=== PATIENT | female | born 1995 | race Caucasian/White ===

== ENCOUNTER 2016-08-14 11:49 | Emergency (ER) | payer MEDICAID ==
[2016-08-14 14:42] LABS: ALBUMIN 3.7 g/dL (3.4-5.0); ALKALINE PHOSPHATASE 99 U/L (46-116); ALT (SGPT) 41 U/L (10-68); AMYLASE - SERUM 30 U/L (25-115); BILIRUBIN - TOTAL 0.44 mg/dL (0.2-1.3); CALC OSMOLALITY 281 mosm/kg (275-300); CALCIUM 9.2 mg/dL (8.5-10.1); CARBON DIOXIDE 23.9 mmol/L (21.0-32.0); CHLORIDE - SERUM 106 mmol/L (98-107); CREATININE - SERUM 0.7 mg/dL (0.6-1.3); GLUCOSE 89 mg/dL (74-106); POTASSIUM - SERUM 3.9 mmol/L (3.5-5.1); PROTEIN - SERUM 7.5 g/dL (6.4-8.2); SODIUM 142 mmol/L (136-145); UREA NITROGEN 13 mg/dL (7-18); eGFR NON AFRICAN AMERICAN > 90 mL/min (90-120)
[2016-08-14 15:17] LABS: BASOPHILS 0.1 % (0-2); EOSINOPHILS 0.9 % (0-7); HEMATOCRIT 40.3 % (36.0-48.0); HEMOGLOBIN 13.5 g/dL (12-16); IMMATURE GRANULOCYTES 0.1 % (0-5); MCH 28.5 pg (26.0-34.0); MCHC 33.5 g/dL (31.0-37.0); MCV 85.2 fL (80.0-100.0); MEAN PLATELET VOLUME 10.4 fL (7.4-10.4); MONOCYTES 5.1 % (2-11); NEUTROPHILS 61.8 % (40-80); PLATELET COUNT 270 10x3/uL (130-400); RBC 4.73 10x6/uL (4.00-5.40); RDW 12.6 % (11.5-14.5); WBC 7.8 10x3/uL (4.8-10.8)
[2016-08-14 16:36] LABS: APPEARANCE HAZY (CLEAR); BILIRUBIN NEGATIVE (NEGATIVE); COLOR YELLOW (YELLOW); GLUCOSE NEGATIVE (NEGATIVE); KETONE NEGATIVE (NEGATIVE); LEUKOCYTE ESTERASE NEGATIVE (NEGATIVE); NITRITE NEGATIVE (NEGATIVE); PROTEIN NEGATIVE (NEGATIVE); UROBILINOGEN NORMAL (NORMAL)
[2016-08-14 16:37] LABS: BACTERIA FEW /hpf (NONE SEEN); EPITHELIAL CELLS 0-5 /hpf (0-5); RED CELLS - URINE 0-5 /hpf (0-5); WHITE CELLS - URINE NSEEN /hpf (0-5)
== END 2016-08-14 20:16 | disposition home or self-care (01) ==
LOC: D.ER 11:49
PROVIDERS: Nurse Practitioner Family
DX: R07.9 Chest pain, unspecified (principal); M94.0 Chondrocostal junction syndrome [Tietze]; R07.89 Other chest pain; M79.7 Fibromyalgia; E03.9 Hypothyroidism, unspecified; J45.909 Unspecified asthma, uncomplicated

== ENCOUNTER 2016-12-08 08:12 | Inpatient (IN) | payer MEDICAID ==
[~2016-12-08] VITALS: Ht 177.8 cm; Wt 124.3 kg
[2016-12-08 09:08] LABS: BASOPHILS 0.1 % (0-2); EOSINOPHILS 1.2 % (0-7); HEMATOCRIT 39.1 % (36.0-48.0); IMMATURE GRANULOCYTES 0.1 % (0-5); LYMPHOCYTES 21.2 % (15-50); MCH 28.3 pg (26.0-34.0); MCHC 33.2 g/dL (31.0-37.0); MCV 85.2 fL (80.0-100.0); MEAN PLATELET VOLUME 10.2 fL (7.4-10.4); MONOCYTES 5.5 % (2-11); NEUTROPHILS 71.9 % (40-80); RBC 4.59 10x6/uL (4.00-5.40); WBC 8.1 10x3/uL (4.8-10.8)
[2016-12-08 09:14] LABS: PLATELET COUNT 208 10x3/uL (130-400)
[2016-12-08 09:29] LABS: ALBUMIN 3.1 g/dL (3.4-5.0); ALKALINE PHOSPHATASE 103 U/L (46-116); ALT (SGPT) 62 U/L (10-68); AMYLASE - SERUM 168 U/L (25-115); BILIRUBIN - TOTAL 0.64 mg/dL (0.2-1.3); CALC OSMOLALITY 276 mosm/kg (275-300); CALCIUM 8.4 mg/dL (8.5-10.1); CARBON DIOXIDE 28.7 mmol/L (21.0-32.0); CHLORIDE - SERUM 104 mmol/L (98-107); CREATININE - SERUM 0.8 mg/dL (0.6-1.3); GLUCOSE 104 mg/dL (74-106); LIPASE 1307 U/L (73-393); POTASSIUM - SERUM 3.9 mmol/L (3.5-5.1); PROTEIN - SERUM 6.9 g/dL (6.4-8.2); SODIUM 139 mmol/L (136-145); UREA NITROGEN 10 mg/dL (7-18); eGFR NON AFRICAN AMERICAN > 90 mL/min (90-120)
[2016-12-08 10:11] LABS: APPEARANCE CLEAR (CLEAR); BILIRUBIN NEGATIVE (NEGATIVE); COLOR YELLOW (YELLOW); GLUCOSE NEGATIVE (NEGATIVE); KETONE NEGATIVE (NEGATIVE); LEUKOCYTE ESTERASE NEGATIVE (NEGATIVE); NITRITE NEGATIVE (NEGATIVE); PROTEIN NEGATIVE (NEGATIVE); UROBILINOGEN NORMAL (NORMAL)
[2016-12-08 10:12] LABS: HCG URINE NEGATIVE (NEGATIVE)
[2016-12-08] MEDS ORDERED: NATROL 5-HTP50 MG PO (17:06)
[2016-12-08] MEDS ORDERED: MELATONIN 3 MG1 TAB PO (17:06)
[2016-12-08] MEDS ORDERED: IBUPROFEN800 MG PO (17:07)
--- NOTE | 2016-12-08 18:19 | NUR ---
RECEIVED TO FLOOR, DENIES NEEDS, BED LOWEST POSITION, CALL LIGHT IN REACH, WILL CONTINUE TO MONITOR
[2016-12-08 18:22] LABS: HEMOGLOBIN A1C 5.6 % (4.8-6.0)
[2016-12-08 18:51] VITALS: BP 111/57; BMI 39.3
[2016-12-08 19:00] VITALS: BP 126/67
[2016-12-09] VITALS: BP 118/60
--- NOTE | 2016-12-09 02:00 | NUR ---
PT RESTING IN BED WITH NO DISTRESS. RESPIRATIONS EVEN AND UNLABORED. VISITOR AT THE BEDSIDE. SIDE RAILS X 2. BED IS LOW. CALL LIGHT IN REACH.
[2016-12-09 04:00] VITALS: BP 96/59
[2016-12-09 06:48] LABS: BASOPHILS 0.2 % (0-2); EOSINOPHILS 2.3 % (0-7); HEMATOCRIT 34.8 % (36.0-48.0); HEMOGLOBIN 11.9 g/dL (12-16); IMMATURE GRANULOCYTES 0.2 % (0-5); LYMPHOCYTES 32.1 % (15-50); MCH 28.7 pg (26.0-34.0); MCHC 34.2 g/dL (31.0-37.0); MCV 84.1 fL (80.0-100.0); MEAN PLATELET VOLUME 9.5 fL (7.4-10.4); MONOCYTES 6.4 % (2-11); NEUTROPHILS 58.8 % (40-80); PLATELET COUNT 205 10x3/uL (130-400); RBC 4.14 10x6/uL (4.00-5.40); RDW 13.1 % (11.5-14.5); WBC 6.5 10x3/uL (4.8-10.8)
[2016-12-09 07:05] LABS: ALBUMIN 2.7 g/dL (3.4-5.0); ALKALINE PHOSPHATASE 103 U/L (46-116); ALT (SGPT) 135 U/L (10-68); AMYLASE - SERUM 73 U/L (25-115); BILIRUBIN - TOTAL 0.77 mg/dL (0.2-1.3); CALC OSMOLALITY 278 mosm/kg (275-300); CALCIUM 7.9 mg/dL (8.5-10.1); CARBON DIOXIDE 26.4 mmol/L (21.0-32.0); CHLORIDE - SERUM 106 mmol/L (98-107); CREATININE - SERUM 0.7 mg/dL (0.6-1.3); GLUCOSE 98 mg/dL (74-106); LIPASE 316 U/L (73-393); POTASSIUM - SERUM 3.7 mmol/L (3.5-5.1); PROTEIN - SERUM 6.2 g/dL (6.4-8.2); SODIUM 141 mmol/L (136-145); UREA NITROGEN 7 mg/dL (7-18); eGFR NON AFRICAN AMERICAN > 90 mL/min (90-120)
--- NOTE | 2016-12-09 07:42 | NUR ---
AM ROUNDS - PT WALKING AROUND IN ROOM. NON SKID SOCKS ON. NO YELLOW BAND. SISTER AT BEDISDE. BED AT LOWEST POSITION. CALL KOVACS IN BED. SIDE RAILS UP X2. IV TO RIGHT FA, NS AT 125. NO NEEDS AT THIS TIME. WILL CONTINUE TO MONITOR.
[2016-12-09 09:03] VITALS: BP 101/56
--- NOTE | 2016-12-09 09:35 | NUR ---
Patient Name: ZEFERINO CARRERO Admission Status: ER Accout number: [id number] Admission Date: 12-08-2016 : 1995 Admission Diagnosis: Attending: JOSUÉ Current LOS: 1 Anticipated DC Date: 12-11-2016 Planned Disposition: Home Primary Insurance: [id number] Discharge Planning Comments: CM MET WITH PATIENT AND SISTER ([facility]) REGARDING D/C NEEDS AND PLANS. PATIENT LIVES WITH SISTER AND SHE WILL DRIVE HER HOME AT DISCHARGE. THERE ARE NO STEPS OR STAIRS AT HER HOME. PATIENT HAS HELP BATHING AND WITH MEDICATIONS PER SISTER. PATIENTS PCP IS AT [facility] AND SEES BENITA BELL. PATIENT USES [facility] [address] FOR HER PHARMACY NEEDS. PATIENT DOES GO TO [employer] AND IS ABOUT TO START PAIN MANAGEMENT PER SISTER. PATIENTS SISTER STATED PATIENT DOES NOT NEED HOME HEALTH. CM WILL CONTINUE TO FOLLOW PATIENT WITH D/C NEEDS AND PLANS. PCP [facility] (BENITA BELL) [facility] [address] [facility] [phone] Cops: Uma Mitchell Is the patient Alert and Oriented? Yes 0 * How many steps to enter\exit or inside your home? 0 0 * PCP [facility] 0 * Pharmacy [facility] [address] 0 * Preadmission Environment Home with Family 0 * ADLs Partial Dependent 0 * Partial ADLs (Assistance needed) Bathing Medication Management 0 * Equipment None 0 * List name and contact numbers for known caregivers / representatives who currently or will assist patient after discharge: [facility] [phone] 0 * Community resources currently utilized Other 0 * Please name any agencies selected above. [employer] 0 * Additional services required to return to the preadmission environment? Yes 0 * Can the patient safely return to the preadmission environment? Yes 0 * Has this patient been hospitalized within the prior 30 days at any hospital? No 0 Grand Total: 0
[2016-12-09 12:05] VITALS: BP 100/61
[2016-12-09 16:27] VITALS: BP 108/54
[2016-12-09 19:45] VITALS: BP 122/75
--- NOTE | 2016-12-09 19:45 | NUR ---
AWAKE DURING INITIAL ROUNDS. V/S TAKEN. ASSESSMENT DONE. STATUS Dx: PANCREATITIS/ABD PAIN. IVF--NS @ 75cc/hr TO R FA. IV SITE OK. DEMIES NEED FOR PAIN MED AT THIS TIME.
--- NOTE | 2016-12-09 21:10 | NUR ---
WATCHING TV. DENIES NEEDS AT THIS TIME. SISTER IN THE ROOM.
--- NOTE | 2016-12-09 22:30 | NUR ---
PATIENT's SISTER TO NURSES DESK--WANTS "SLEEPING PILL" FOR PT. CALL PLACED TO RAY GRAHAM. RETURNED CALL. ORDERED MELATONIN. NURSING CHIEF GROWTH OFFICER NOTIFIED.
--- NOTE | 2016-12-09 22:40 | NUR ---
MELATONIN 6mg PO GUVEN FOR SLEEP.
--- NOTE | 2016-12-10 00:30 | NUR ---
EYES CLOSED. LEFT UNDISTURBED.
--- NOTE | 2016-12-10 02:15 | NUR ---
APPEARS TO BE ASLEEP.
--- NOTE | 2016-12-10 04:36 | NUR ---
PORTABLE KUB DONE BY RADIOLOGY STAFF.
--- NOTE | 2016-12-10 04:58 | NUR ---
ASSISTANT DRAFTER HERE TO DRAW AM LAB
[2016-12-10 05:00] VITALS: BP 108/67
--- NOTE | 2016-12-10 05:11 | NUR ---
AMBULATING IN THE [place].
[2016-12-10 05:27] LABS: BASOPHILS 0 % (0-2); EOSINOPHILS 1.6 % (0-7); HEMATOCRIT 35.4 % (36.0-48.0); HEMOGLOBIN 12.1 g/dL (12-16); IMMATURE GRANULOCYTES 0.2 % (0-5); LYMPHOCYTES 34.3 % (15-50); MCH 28.9 pg (26.0-34.0); MCHC 34.2 g/dL (31.0-37.0); MCV 84.5 fL (80.0-100.0); MEAN PLATELET VOLUME 9.7 fL (7.4-10.4); MONOCYTES 6.3 % (2-11); NEUTROPHILS 57.6 % (40-80); PLATELET COUNT 204 10x3/uL (130-400); RBC 4.19 10x6/uL (4.00-5.40); WBC 5.7 10x3/uL (4.8-10.8)
[2016-12-10 05:59] LABS: ALBUMIN 2.9 g/dL (3.4-5.0); ALKALINE PHOSPHATASE 101 U/L (46-116); ALT (SGPT) 129 U/L (10-68); BILIRUBIN - TOTAL 0.67 mg/dL (0.2-1.3); CALC OSMOLALITY 276 mosm/kg (275-300); CALCIUM 8.1 mg/dL (8.5-10.1); CARBON DIOXIDE 25.7 mmol/L (21.0-32.0); CHLORIDE - SERUM 105 mmol/L (98-107); CREATININE - SERUM 0.6 mg/dL (0.6-1.3); GLUCOSE 90 mg/dL (74-106); LIPASE 233 U/L (73-393); POTASSIUM - SERUM 3.7 mmol/L (3.5-5.1); PROTEIN - SERUM 6.5 g/dL (6.4-8.2); SODIUM 140 mmol/L (136-145); UREA NITROGEN 7 mg/dL (7-18); eGFR NON AFRICAN AMERICAN > 90 mL/min (90-120)
[2016-12-10 06:03] LABS: AMYLASE - SERUM 46 U/L (25-115)
[2016-12-10 07:30] VITALS: BP 112/53
--- NOTE | 2016-12-10 07:30 | NUR ---
PT WAS RECEIVED THIS AM LYING IN MED. SHE OFFERS NO COMPLAINTS. GEN- AWAKE AND ALERT, LUNGS CLEAR. HEART- RRR. ABD- OBESE. NT, BS+, EXT NO EDEMA. IV PATENT R AC WITH NS. BED IS LOW, SIDE RAILS UP X 2. CALL LIGHT IN REACH.
--- NOTE | 2016-12-10 09:00 | NUR ---
PT IS LYING IN BED, PLAYING ON PHONE. SHE WANTS TO GO HOME.
--- NOTE | 2016-12-10 10:30 | NUR ---
PT IS RESTING. HAS BEEN UP TO BATHROOM AND THEN BACK TO BED.
[2016-12-10 10:54] VITALS: Ht 177.8 cm; Wt 124.3 kg
--- NOTE | 2016-12-10 12:00 | NUR ---
PT SERVED LUNCH. TOLERATED WELL.
--- NOTE | 2016-12-10 14:00 | NUR ---
DR DEL REAL IS HERE TO SEE PT.
--- NOTE | 2016-12-10 17:37 | NUR ---
PT IS BEING DISCHARGED HOME. DISCHARGE INSTRUCTIONS GIVEN. HANDOUTS GIVEN. HER SISTER IS WITH HER. PT TAKEN BY WHEELCHAIR TO HER VEHICLE. HER IV WAS D'CD TIP INTACT. PRESSURE DRESSING APPLIED.
== END 2016-12-10 18:08 | disposition home or self-care (01) | DRG 439 ==
LOC: D.ER 08:12 → D.MS 14:52 → D.SDCHOLD 14:52 → D.MS 17:02 → D.WS 12-09 16:49
PROVIDERS: Family Medicine; ADMIT Family Medicine
DX: K85.90 Acute pancreatitis without necrosis or infection, unspecified (principal); F84.0 Autistic disorder; R16.2 Hepatomegaly with splenomegaly, not elsewhere classified; K76.0 Fatty (change of) liver, not elsewhere classified; M79.7 Fibromyalgia; E28.2 Polycystic ovarian syndrome; F41.8 Other specified anxiety disorders; R32 Unspecified urinary incontinence; E03.9 Hypothyroidism, unspecified; E66.9 Obesity, unspecified; G47.00 Insomnia, unspecified

== ENCOUNTER → 2017-04-27 09:09 | Outpatient (CLI) | payer MEDICAID ==
[2016-12-10 10:54] VITALS: BMI 39.3
[~2017-04-27 09:09] MED LIST: IBUPROFEN800 MG PO; MELATONIN 3 MG1 TAB PO; NATROL 5-HTP50 MG PO
[2017-04-29 06:14] LABS: ENDOMYSIAL ANTIBODY IGA Negative (Negative)
[2017-04-29 12:15] LABS: ANTIGLIADIN IGA 20 units (0-19); ANTIGLIADIN IGG 43 units (0-19)
== END | disposition home or self-care (01) ==
LOC: D.LAB 08:00
PROVIDERS: Internal Medicine Gastroenterology
DX: K31.9 Disease of stomach and duodenum, unspecified (principal)

== ENCOUNTER → 2017-07-20 15:48 | Outpatient (CLI) | payer MEDICAID ==
[2016-12-10 10:54] VITALS: BMI 39.3
== END | disposition home or self-care (01) ==
LOC: D.RAD 15:00
DX: R05 Cough (principal)

== ENCOUNTER 2017-07-25 07:37 | Emergency (ER) | payer MEDICAID ==
[2016-12-10 10:54] VITALS: BMI 39.3
== END 2017-07-25 08:58 | disposition home or self-care (01) ==
LOC: D.ER 07:37
DX: J20.9 Acute bronchitis, unspecified (principal); E03.9 Hypothyroidism, unspecified

== ENCOUNTER 2017-11-14 23:14 | Emergency (ER) | payer MEDICAID ==
[~2017-11-14] VITALS: Ht 172.7 cm; Wt 119.1 kg
[2017-11-14 23:20] VITALS: Ht 172.7 cm; Wt 119.1 kg
[2017-11-14 23:56] LABS: BASOPHILS 0.3 % (0-2); EOSINOPHILS 1.8 % (0-7); HEMATOCRIT 39.6 % (36.0-48.0); HEMOGLOBIN 13.5 g/dL (12-16); IMMATURE GRANULOCYTES 0.1 % (0-5); LYMPHOCYTES 42.6 % (15-50); MCH 28.7 pg (26.0-34.0); MCHC 34.1 g/dL (31.0-37.0); MCV 84.1 fL (80.0-100.0); MONOCYTES 5.2 % (2-11); PLATELET COUNT 281 10x3/uL (130-400); RBC 4.71 10x6/uL (4.00-5.40); RDW 12.5 % (11.5-14.5); WBC 8.8 10x3/uL (4.8-10.8)
[2017-11-15 00:10] LABS: ALBUMIN 3.4 g/dL (3.4-5.0); ALKALINE PHOSPHATASE 92 U/L (46-116); ALT (SGPT) 53 U/L (10-68); AMYLASE - SERUM 28 U/L (25-115); BILIRUBIN - TOTAL 0.29 mg/dL (0.2-1.3); CALC OSMOLALITY 278 mosm/kg (275-300); CALCIUM 8.4 mg/dL (8.5-10.1); CARBON DIOXIDE 29.1 mmol/L (21.0-32.0); CHLORIDE - SERUM 104 mmol/L (98-107); CREATININE - SERUM 0.8 mg/dL (0.6-1.3); GLUCOSE 116 mg/dL (74-106); LIPASE 144 U/L (73-393); SODIUM 140 mmol/L (136-145); UREA NITROGEN 10 mg/dL (7-18); eGFR NON AFRICAN AMERICAN > 90 mL/min (90-120)
[2017-11-15 00:19] LABS: HCG SERUM NEGATIVE (NEGATIVE)
[2017-11-15 01:43] LABS: APPEARANCE CLEAR (CLEAR); BILIRUBIN NEGATIVE (NEGATIVE); COLOR YELLOW (YELLOW); GLUCOSE NEGATIVE (NEGATIVE); KETONE NEGATIVE (NEGATIVE); NITRITE NEGATIVE (NEGATIVE); PROTEIN NEGATIVE (NEGATIVE); UROBILINOGEN NORMAL (NORMAL)
[2017-11-15 02:52] VITALS: BP 129/82
== END 2017-11-15 02:53 | disposition home or self-care (01) ==
LOC: D.ER 23:14
PROVIDERS: Family Medicine
DX: K90.0 Celiac disease (principal); E28.2 Polycystic ovarian syndrome

== ENCOUNTER 2018-05-02 10:49 | Emergency (ER) | payer MEDICAID ==
[~2018-05-02] VITALS: Ht 172.7 cm; Wt 78.6 kg
[2018-05-02 10:52] VITALS: Ht 172.7 cm; Wt 78.6 kg
[2018-05-02] MEDS ORDERED: MUCINEX DM ER1 EAC1 PO (11:16)
[2018-05-02] MEDS ORDERED: ZITHROMAX500 MG PO (11:16)
[2018-05-02 12:01] VITALS: BP 122/72
== END 2018-05-02 12:02 | disposition home or self-care (01) ==
LOC: D.ER 10:49
DX: J06.9 Acute upper respiratory infection, unspecified (principal); J40 Bronchitis, not specified as acute or chronic; R09.89 Other specified symptoms and signs involving the circulatory and respiratory systems

== ENCOUNTER 2018-05-10 18:47 | Emergency (ER) | payer MEDICAID ==
[~2018-05-10] VITALS: Ht 172.7 cm; Wt 122.7 kg
[~2018-05-10 18:47] MED LIST changes: +MUCINEX DM ER1 EAC1 PO; +ZITHROMAX500 MG PO
[2018-05-10 19:22] VITALS: Ht 172.7 cm; Wt 122.7 kg
[2018-05-11 00:07] LABS: HEMATOCRIT 36.6 % (36.0-48.0); LYMPHOCYTES 38.1 % (15-50); MCH 29.5 pg (26.0-34.0); MCHC 35.5 g/dL (31.0-37.0); MCV 83.2 fL (80.0-100.0); MEAN PLATELET VOLUME 9.8 fL (7.4-10.4); NEUTROPHILS 56.8 % (40-80); PLATELET COUNT 269 10x3/uL (130-400); RDW 12.4 % (11.5-14.5); WBC 7.6 10x3/uL (4.8-10.8)
[2018-05-11 00:18] LABS: CALC OSMOLALITY 279 mosm/kg (275-300); CALCIUM 7.9 mg/dL (8.5-10.1); CARBON DIOXIDE 24.7 mmol/L (21.0-32.0); CHLORIDE - SERUM 104 mmol/L (98-107); CREATININE - SERUM 0.8 mg/dL (0.6-1.3); GLUCOSE 112 mg/dL (74-106); POTASSIUM - SERUM 3.4 mmol/L (3.5-5.1); SODIUM 140 mmol/L (136-145); UREA NITROGEN 12 mg/dL (7-18); eGFR NON AFRICAN AMERICAN > 90 mL/min (90-120)
[2018-05-11 00:48] LABS: HCG SERUM NEGATIVE (NEGATIVE)
[2018-05-11 02:03] VITALS: BP 145/78
== END 2018-05-11 02:04 | disposition home or self-care (01) ==
LOC: D.ER 18:47
PROVIDERS: Family Medicine
DX: G43.909 Migraine, unspecified, not intractable, without status migrainosus (principal)

== ENCOUNTER 2018-05-19 20:16 | Emergency (ER) | payer MEDICAID ==
[~2018-05-19] VITALS: Ht 172.7 cm; Wt 122.7 kg
[2018-05-19 20:49] VITALS: Ht 172.7 cm; Wt 122.7 kg
[2018-05-19 22:39] LABS: HCG URINE NEGATIVE (NEGATIVE)
[2018-05-19] MEDS ORDERED: ATARAX 25 MG TA25 MG PO (23:25)
[2018-05-19] MEDS ORDERED: ZOFRAN ODT4 MG/UDTAB PO (23:25)
[2018-05-19 23:40] VITALS: BP 119/70
== END 2018-05-19 23:40 | disposition home or self-care (01) ==
LOC: D.ER 20:16
PROVIDERS: Family Medicine
DX: G43.909 Migraine, unspecified, not intractable, without status migrainosus (principal); R42 Dizziness and giddiness

== ENCOUNTER 2018-05-21 15:39 | Emergency (ER) | payer MEDICAID ==
[~2018-05-21] VITALS: Ht 172.7 cm; Wt 122.7 kg
[~2018-05-21 15:39] MED LIST changes: +ATARAX 25 MG TA25 MG PO; +ZOFRAN ODT4 MG/UDTAB PO
[2018-05-21 16:34] VITALS: Ht 172.7 cm; Wt 122.7 kg
[2018-05-21 17:35] LABS: BASOPHILS 0 % (0-2); EOSINOPHILS 0.6 % (0-7); HEMATOCRIT 41.4 % (36.0-48.0); HEMOGLOBIN 14.6 g/dL (12-16); IMMATURE GRANULOCYTES 0.2 % (0-5); LYMPHOCYTES 25.7 % (15-50); MCH 29.4 pg (26.0-34.0); MCHC 35.3 g/dL (31.0-37.0); MCV 83.3 fL (80.0-100.0); MEAN PLATELET VOLUME 10.1 fL (7.4-10.4); NEUTROPHILS 67.5 % (40-80); PLATELET COUNT 283 10x3/uL (130-400); RBC 4.97 10x6/uL (4.00-5.40); RDW 12.8 % (11.5-14.5); WBC 10.1 10x3/uL (4.8-10.8)
[2018-05-21 17:52] LABS: ALKALINE PHOSPHATASE 73 U/L (46-116); ALT (SGPT) 58 U/L (10-68); BILIRUBIN - TOTAL 0.72 mg/dL (0.2-1.3); CALC OSMOLALITY 279 mosm/kg (275-300); CALCIUM 8.8 mg/dL (8.5-10.1); CARBON DIOXIDE 24.1 mmol/L (21.0-32.0); CHLORIDE - SERUM 105 mmol/L (98-107); CREATININE - SERUM 0.7 mg/dL (0.6-1.3); GLUCOSE 96 mg/dL (74-106); PROTEIN - SERUM 7.9 g/dL (6.4-8.2); SODIUM 141 mmol/L (136-145); UREA NITROGEN 9 mg/dL (7-18); eGFR NON AFRICAN AMERICAN > 90 mL/min (90-120)
[2018-05-21 18:03] LABS: POTASSIUM - SERUM 2.9 mmol/L (3.5-5.1)
[2018-05-21] MEDS ORDERED: OMEPRAZOLE40 MG PO (21:39)
[2018-05-21] MEDS ORDERED: AUGMENTIN 875-11 TAB PO (21:39)
[2018-05-21] MEDS ORDERED: K-DUR20 MEQ PO (21:46)
[2018-05-21 22:13] VITALS: BP 123/85
== END 2018-05-21 22:16 | disposition home or self-care (01) ==
LOC: D.ER 15:39
PROVIDERS: Family Medicine
DX: J01.90 Acute sinusitis, unspecified (principal); K21.9 Gastro-esophageal reflux disease without esophagitis; E87.6 Hypokalemia; G43.909 Migraine, unspecified, not intractable, without status migrainosus

== ENCOUNTER 2018-06-21 11:47 | Emergency (ER) | payer MEDICAID ==
[2018-05-21 16:34] VITALS: Ht 177.8 cm; Wt 100.0 kg
[~2018-06-21] VITALS: Ht 177.8 cm; Wt 100.0 kg
[2018-06-21 11:47] VITALS: BP 146/72
[~2018-06-21 11:47] MED LIST changes: +AUGMENTIN 875-11 TAB PO; +K-DUR20 MEQ PO; +OMEPRAZOLE40 MG PO
[2018-06-21] MEDS ORDERED: OMEPRAZOLE20 M1 PO (11:50)
[2018-06-21] MEDS ORDERED: POTASSIUM CHLO10 ME1 PO (11:51)
[2018-06-21 12:23] LABS: HCG URINE NEGATIVE (NEGATIVE)
[2018-06-21 12:31] LABS: APPEARANCE HAZY (CLEAR); BILIRUBIN NEGATIVE (NEGATIVE); COLOR YELLOW (YELLOW); GLUCOSE NEGATIVE (NEGATIVE); KETONE NEGATIVE (NEGATIVE); NITRITE NEGATIVE (NEGATIVE); PROTEIN NEGATIVE (NEGATIVE); UROBILINOGEN NORMAL (NORMAL)
[2018-06-21 12:32] LABS: BACTERIA FEW /hpf (NONE SEEN); EPITHELIAL CELLS 0-5 /hpf (0-5); RED CELLS - URINE 25-50 /hpf (0-5); WHITE CELLS - URINE 0-5 /hpf (0-5)
[2018-06-21 12:40] LABS: BASOPHILS 0.1 % (0-2); EOSINOPHILS 0.6 % (0-7); HEMATOCRIT 41.7 % (36.0-48.0); HEMOGLOBIN 14.5 g/dL (12-16); LYMPHOCYTES 30.7 % (15-50); MCH 29.5 pg (26.0-34.0); MCHC 34.8 g/dL (31.0-37.0); MCV 84.9 fL (80.0-100.0); MEAN PLATELET VOLUME 10.2 fL (7.4-10.4); MONOCYTES 7.7 % (2-11); NEUTROPHILS 60.9 % (40-80); PLATELET COUNT 278 10x3/uL (130-400); RBC 4.91 10x6/uL (4.00-5.40); RDW 12.8 % (11.5-14.5); WBC 7.9 10x3/uL (4.8-10.8)
[2018-06-21 12:50] LABS: ALBUMIN 3.7 g/dL (3.4-5.0); ALKALINE PHOSPHATASE 75 U/L (46-116); ALT (SGPT) 51 U/L (10-68); BILIRUBIN - TOTAL 0.32 mg/dL (0.2-1.3); CALC OSMOLALITY 286 mosm/kg (275-300); CALCIUM 8.8 mg/dL (8.5-10.1); CHLORIDE - SERUM 107 mmol/L (98-107); CREATININE - SERUM 0.6 mg/dL (0.6-1.3); GLUCOSE 88 mg/dL (74-106); POTASSIUM - SERUM 3.4 mmol/L (3.5-5.1); PROTEIN - SERUM 7.3 g/dL (6.4-8.2); SODIUM 145 mmol/L (136-145); UREA NITROGEN 11 mg/dL (7-18); eGFR NON AFRICAN AMERICAN > 90 mL/min (90-120)
== END 2018-06-21 14:07 | disposition home or self-care (01) ==
LOC: D.ER 11:47
PROVIDERS: Emergency Medicine
DX: Z71.1 Person with feared health complaint in whom no diagnosis is made (principal); R10.30 Lower abdominal pain, unspecified

== ENCOUNTER 2018-07-20 14:16 | Emergency (ER) | payer MEDICAID ==
[~2018-07-20] VITALS: Ht 177.8 cm; Wt 113.6 kg
[~2018-07-20 14:16] MED LIST changes: +OMEPRAZOLE20 M1 PO; +POTASSIUM CHLO10 ME1 PO
[2018-07-20 14:39] VITALS: Ht 177.8 cm; Wt 113.6 kg
[2018-07-20] MEDS ORDERED: FLUTICASONE PRO16 GM NASAL (14:47)
[2018-07-20] MEDS ORDERED: ZYRTEC10 MG PO (14:47)
[2018-07-20] MEDS ORDERED: PRENAVITE1 TAB PO (14:48)
[2018-07-20] MEDS ORDERED: ADVIL200 MG PO (14:48)
[2018-07-20 18:02] LABS: HCG URINE NEGATIVE (NEGATIVE)
[2018-07-20 21:45] VITALS: BP 115/68
== END 2018-07-20 21:45 | disposition home or self-care (01) ==
LOC: D.ER 14:16
PROVIDERS: Family Medicine
DX: G89.29 Other chronic pain (principal); Z76.5 Malingerer [conscious simulation]

== ENCOUNTER 2018-08-04 19:09 | Emergency (ER) | payer MEDICAID ==
[~2018-08-04] VITALS: Ht 177.8 cm; Wt 90.9 kg
[~2018-08-04 19:09] MED LIST changes: +ADVIL200 MG PO; +FLUTICASONE PRO16 GM NASAL; +PRENAVITE1 TAB PO; +ZYRTEC10 MG PO
[2018-08-04 19:18] VITALS: Ht 177.8 cm; Wt 90.9 kg
[2018-08-04 19:42] LABS: BASOPHILS 0.1 % (0-2); EOSINOPHILS 1.2 % (0-7); HEMATOCRIT 38.5 % (36.0-48.0); HEMOGLOBIN 13.6 g/dL (12-16); IMMATURE GRANULOCYTES 0.2 % (0-5); LYMPHOCYTES 19.9 % (15-50); MCH 29.6 pg (26.0-34.0); MCHC 35.3 g/dL (31.0-37.0); MCV 83.7 fL (80.0-100.0); MEAN PLATELET VOLUME 9.7 fL (7.4-10.4); MONOCYTES 6.4 % (2-11); NEUTROPHILS 72.2 % (40-80); PLATELET COUNT 310 10x3/uL (130-400); RDW 12.8 % (11.5-14.5); WBC 12.1 10x3/uL (4.8-10.8)
[2018-08-04 20:07] LABS: APPEARANCE HAZY (CLEAR); BILIRUBIN NEGATIVE (NEGATIVE); COLOR YELLOW (YELLOW); GLUCOSE NEGATIVE (NEGATIVE); KETONE SMALL mg/dL (NEGATIVE); NITRITE NEGATIVE (NEGATIVE); PROTEIN NEGATIVE (NEGATIVE); UROBILINOGEN NORMAL (NORMAL)
[2018-08-04 20:08] LABS: BACTERIA MANY /hpf (NONE SEEN); EPITHELIAL CELLS OCC /hpf (0-5); RED CELLS - URINE OCC /hpf (0-5); WHITE CELLS - URINE 0-5 /hpf (0-5)
[2018-08-04 20:10] LABS: ALBUMIN 3.5 g/dL (3.4-5.0); ALKALINE PHOSPHATASE 74 U/L (46-116); ALT (SGPT) 41 U/L (10-68); BILIRUBIN - TOTAL 0.45 mg/dL (0.2-1.3); CALC OSMOLALITY 280 mosm/kg (275-300); CALCIUM 8.7 mg/dL (8.5-10.1); CARBON DIOXIDE 27.7 mmol/L (21.0-32.0); CHLORIDE - SERUM 103 mmol/L (98-107); CREATININE - SERUM 0.7 mg/dL (0.6-1.3); GLUCOSE 97 mg/dL (74-106); POTASSIUM - SERUM 3.1 mmol/L (3.5-5.1); PROTEIN - SERUM 7.7 g/dL (6.4-8.2); SODIUM 141 mmol/L (136-145); UREA NITROGEN 12 mg/dL (7-18); eGFR NON AFRICAN AMERICAN > 90 mL/min (90-120)
[2018-08-04 20:12] LABS: UDS - AMPHET NEGATIVE QUAL (NEGATIVE); UDS - BARB NEGATIVE QUAL (NEGATIVE); UDS - BENZO NEGATIVE QUAL (NEGATIVE); UDS - COCAINE NEGATIVE QUAL (NEGATIVE); UDS - OPIATE NEGATIVE QUAL (NEGATIVE); UDS - PCP NEGATIVE QUAL (NEGATIVE); UDS - THC NEGATIVE QUAL (NEGATIVE)
[2018-08-04 20:12] LABS: MAGNESIUM - SERUM 2.1 mg/dL (1.8-2.4)
[2018-08-05 02:29] VITALS: BP 110/68
== END 2018-08-05 02:33 ==
LOC: D.ER 19:09
PROVIDERS: Emergency Medicine
DX: R44.0 Auditory hallucinations (principal); R44.1 Visual hallucinations; N39.0 Urinary tract infection, site not specified

== ENCOUNTER 2019-08-31 03:10 | Emergency (ER) | payer MEDICAID ==
[~2019-08-31] VITALS: Ht 177.8 cm; Wt 127.3 kg
[2019-08-31 03:20] VITALS: BP 115/82; Ht 177.8 cm; Wt 127.3 kg
[2019-08-31] MEDS ORDERED: PROTONIX40 MG PO (03:50)
== END 2019-08-31 03:59 | disposition home or self-care (01) ==
LOC: D.ER 03:10
DX: J02.9 Acute pharyngitis, unspecified (principal); Z98.890 Other specified postprocedural states

== ENCOUNTER 2019-11-04 14:38 | Emergency (ER) | payer MEDICAID ==
[~2019-11-04 14:38] MED LIST changes: +PROTONIX40 MG PO
[2019-11-04 14:45] VITALS: BP 120/88; Ht 177.8 cm
[2019-11-04] MEDS ORDERED: ACETAMINOPHEN500 M1 PO (16:42)
[2019-11-04] MEDS ORDERED: CYCLOBENZAPRINE10 MG PO (16:42)
[2019-11-04] MEDS ORDERED: MEDROL DOSE PACK4 MG PO (16:42)
== END 2019-11-04 17:46 | disposition home or self-care (01) ==
LOC: D.ER 14:38
DX: M79.18 Myalgia, other site (principal); M54.9 Dorsalgia, unspecified

== ENCOUNTER → 2020-09-26 09:02 | Outpatient (CLI) | payer MEDICAID ==
[2020-04-11 13:37] VITALS: BMI 40.2
[~2020-09-26 09:02] MED LIST changes: +ACETAMINOPHEN500 M1 PO; +BUSPAR10 MG PO; +CYCLOBENZAPRINE10 MG PO; +FLAGYL500 MG PO; +KEFLEX500 MG PO; +MACRODANTIN100 MG PO; +MEDROL DOSE PACK4 MG PO; +NAPROSYN500 MG PO
[2020-09-26 10:21] LABS: ALBUMIN 3.5 g/dL (3.4-5.0); BILIRUBIN - DIRECT 0.09 mg/dL (0.00-0.30); BILIRUBIN - INDIRECT 0.48 mg/dL (0.00-1.00); BILIRUBIN - TOTAL 0.57 mg/dL (0.2-1.3); PROTEIN - SERUM 7.1 g/dL (6.4-8.2)
== END | disposition home or self-care (01) ==
LOC: D.US 09:02
PROVIDERS: ATTEND Internal Medicine Gastroenterology
DX: K76.0 Fatty (change of) liver, not elsewhere classified (principal)